=== PATIENT | female | born 1985 | race Caucasian/White ===

== ENCOUNTER 2016-07-10 08:50 | Emergency (ER) | payer OTHER ==
[~2016-07-10] VITALS: Ht 144.7 cm; Wt 40.8 kg
[~2016-07-10 08:50] MED LIST: CYCLOBENZAPRINE10 MG PO; HYDROCODONE BIT1 T11 PO; OMEPRAZOLE40 MG PO; ONDANSETRON4 MG PO; TRAMADOL HCL50 MG PO; ZOFRAN ODT4 MG SL; ZOFRAN4 MG PO; Zofran4 MG PO; [UNRECOGNIZED DRUG - OTHER]
[2016-07-10 09:41] LABS: BASO % 0.3 % (0.0-1.0); EOS % 0.2 % (1.0-4.0); HEMATOCRIT 42.5 % (37.0-47.0); HEMOGLOBIN 14.6 g/dl (12.0-16.0); LYMPH # 2.3 10*3/uL (1.3-4.4); LYMPH % 24.8 % (27.0-41.0); MEAN CELL VOLUME 89.1 fl (81.0-99.0); MEAN CORPUSCULAR HGB 30.6 pg (27.0-31.0); MEAN CORPUSCULAR HGB CONC 34.4 g/dl (33.0-37.0); MEAN PLATELET VOLUME 9.6 fl (9.6-12.3); MONO # 0.7 10*3/uL (0.1-1.0); MONO % 7.9 % (3.0-9.0); NEUT # 6.3 10*3/uL (2.3-7.9); NEUT % 66.4 % (47.0-73.0); PLATELET COUNT AUTOMATED 312 10*3/uL (130-400); RED BLOOD COUNT 4.77 10*6/uL (4.10-5.10); RED CELL DISTRI WIDTH 13.7 % (0-14.5); WHITE BLOOD COUNT 9.4 10*3/uL (4.8-10.8)
[2016-07-10 09:55] LABS: ALBUMIN 4.1 gm/dl (3.1-4.5); ALKALINE PHOSPHATASE 47 U/L (45-117); BUN 7 mg/dl (7-24); CARBON DIOXIDE 26 mmol/L (21-32); CHLORIDE 100 mmol/L (98-107); EST GLOM FILT AFRICAN AMERICAN > 60 ml/min; GLUCOSE 111 mg/dL (65-99); POTASSIUM 3.2 mmol/L (3.5-5.1); SGOT/AST 44 IU/L (3-35); SGPT/ALT 48 U/L (12-78); SODIUM 138 mmol/L (136-145); TOTAL PROTEIN 7.6 gm/dL (6.4-8.2); TROPONIN I < 0.015 ng/ml (<0.045)
[2016-07-10 10:02] LABS: BILIRUBIN 1+ (NEGATIVE); BLOOD 3+ (NEGATIVE); CLARITY CLOUDY (CLEAR); COLOR YELLOW (YELLOW); GLUCOSE NEGATIVE (NEGATIVE); KETONE 1+ (NEGATIVE); LEUKO ESTERASE 1+ (NEGATIVE); NITRITE NEGATIVE (NEGATIVE); PROTEIN TRACE (NEGATIVE); SPECIFIC GRAVITY 1.015 (1.005-1.030)
[2016-07-10 10:15] LABS: BACTERIA 2+; EPITHELIAL CELLS 21-30; URINE REFLEX COMMENT YES (NO)
[2016-07-10] MEDS ORDERED: BACTRIM DS 8001 TAB PO (10:20)
[2016-07-10] MEDS ORDERED: ZOFRAN ODT4 MG SL (10:20)
[2016-07-10] MEDS ORDERED: BACTRIM DS 8001 TA1 PO (11:00)
== END 2016-07-10 10:59 | disposition home or self-care (01) ==
LOC: ED 08:50
PROVIDERS: Registered Nurse
DX: N30.00 Acute cystitis without hematuria (principal); K52.9 Noninfective gastroenteritis and colitis, unspecified; F17.200 Nicotine dependence, unspecified, uncomplicated

== ENCOUNTER 2016-08-07 08:34 | Emergency (ER) | payer OTHER ==
[~2016-08-07] VITALS: Ht 144.7 cm; Wt 39.5 kg
[~2016-08-07 08:34] MED LIST changes: +BACTRIM DS 8001 TA1 PO; +BACTRIM DS 8001 TAB PO
[2016-08-07] MEDS ORDERED: BUSPAR5 MG PO (08:46)
[2016-08-07 09:33] LABS: BASO % 0.2 % (0.0-1.0); HEMATOCRIT 42.8 % (37.0-47.0); HEMOGLOBIN 15.1 g/dl (12.0-16.0); LYMPH % 19.3 % (27.0-41.0); MEAN CELL VOLUME 87.7 fl (81.0-99.0); MEAN CORPUSCULAR HGB 30.9 pg (27.0-31.0); MEAN CORPUSCULAR HGB CONC 35.3 g/dl (33.0-37.0); MEAN PLATELET VOLUME 10.1 fl (9.6-12.3); MONO # 1.1 10*3/uL (0.1-1.0); MONO % 10.8 % (3.0-9.0); NEUT % 69.4 % (47.0-73.0); PLATELET COUNT AUTOMATED 306 10*3/uL (130-400); RED BLOOD COUNT 4.88 10*6/uL (4.10-5.10); RED CELL DISTRI WIDTH 12.8 % (0-14.5); WHITE BLOOD COUNT 10.1 10*3/uL (4.8-10.8)
[2016-08-07 09:48] LABS: ALBUMIN 4.3 gm/dl (3.1-4.5); ALKALINE PHOSPHATASE 43 U/L (45-117); BILIRUBIN, TOTAL 1.2 mg/dl (0.2-1.0); BUN 7 mg/dl (7-24); CARBON DIOXIDE 32 mmol/L (21-32); CHLORIDE 93 mmol/L (98-107); EST GLOM FILT AFRICAN AMERICAN > 60 ml/min; GLUCOSE 97 mg/dL (65-99); POTASSIUM 2.9 mmol/L (3.5-5.1); SGOT/AST 80 IU/L (3-35); SGPT/ALT 92 U/L (12-78); SODIUM 137 mmol/L (136-145); TOTAL PROTEIN 7.1 gm/dL (6.4-8.2)
[2016-08-07 10:35] LABS: BILIRUBIN 1+ (NEGATIVE); BLOOD 2+ (NEGATIVE); CLARITY CLOUDY (CLEAR); COLOR YELLOW (YELLOW); GLUCOSE NEGATIVE (NEGATIVE); KETONE 3+ (NEGATIVE); LEUKO ESTERASE TRACE (NEGATIVE); NITRITE NEGATIVE (NEGATIVE); PROTEIN 1+ (NEGATIVE)
[2016-08-07 10:44] LABS: URINE REFLEX COMMENT YES (NO)
[2016-08-07 10:45] LABS: BACTERIA 2+; RBC 16-20 rbc/hpf (0-2)
[2016-08-07] MEDS ORDERED: REGLAN10 M1 PO (11:32)
== END 2016-08-07 11:36 | disposition home or self-care (01) ==
LOC: ED 08:34
PROVIDERS: Emergency Medicine
DX: R11.2 Nausea with vomiting, unspecified (principal); R19.7 Diarrhea, unspecified; F17.200 Nicotine dependence, unspecified, uncomplicated

== ENCOUNTER 2017-03-04 14:03 | Emergency (ER) | payer SELFPAY ==
[~2017-03-04] VITALS: Ht 144.7 cm; Wt 49.9 kg
[~2017-03-04 14:03] MED LIST changes: +BUSPAR5 MG PO; +REGLAN10 M1 PO
[2017-03-04 15:03] LABS: BILIRUBIN 1+ (NEGATIVE); BLOOD 3+ (NEGATIVE); CLARITY SL CLOUDY (CLEAR); COLOR YELLOW (YELLOW); GLUCOSE NEGATIVE (NEGATIVE); KETONE 2+ (NEGATIVE); LEUKO ESTERASE NEGATIVE (NEGATIVE); NITRITE NEGATIVE (NEGATIVE); SPECIFIC GRAVITY >= 1.030 (1.005-1.030)
[2017-03-04 15:10] LABS: BACTERIA 1+; EPITHELIAL CELLS 16-20; RBC 16-20 rbc/hpf (0-2)
[2017-03-04] MEDS ORDERED: ZOFRAN ODT4 MG SL (15:59)
== END 2017-03-04 16:12 | disposition home or self-care (01) ==
LOC: ED 14:03
PROVIDERS: Physician Assistant
DX: R11.2 Nausea with vomiting, unspecified (principal); R42 Dizziness and giddiness; R05 Cough; R09.81 Nasal congestion; R10.9 Unspecified abdominal pain; F17.200 Nicotine dependence, unspecified, uncomplicated; Z90.49 Acquired absence of other specified parts of digestive tract

== ENCOUNTER 2017-04-19 11:29 | Emergency (ER) | payer SELFPAY ==
[~2017-04-19] VITALS: Ht 144.7 cm; Wt 49.9 kg
[2017-04-19 11:48] LABS: BILIRUBIN 2+ (NEGATIVE); BLOOD 3+ (NEGATIVE); CLARITY CLOUDY (CLEAR); COLOR YELLOW (YELLOW); GLUCOSE NEGATIVE (NEGATIVE); KETONE 3+ (NEGATIVE); LEUKO ESTERASE NEGATIVE (NEGATIVE); NITRITE NEGATIVE (NEGATIVE); PH 6.5 (5.0-9.0)
[2017-04-19 12:02] LABS: EPITHELIAL CELLS 31-40; RBC 21-30 rbc/hpf (0-2)
[2017-04-19 12:03] LABS: BACTERIA TRACE
[2017-04-19 12:05] LABS: BASO % 0.2 % (0.0-1.0); EOS % 0.1 % (1.0-4.0); HEMATOCRIT 42.5 % (37.0-47.0); HEMOGLOBIN 14.5 g/dl (12.0-16.0); LYMPH # 1.4 10*3/uL (1.3-4.4); LYMPH % 11.5 % (27.0-41.0); MEAN CELL VOLUME 89.5 fl (81.0-99.0); MEAN CORPUSCULAR HGB 30.5 pg (27.0-31.0); MEAN CORPUSCULAR HGB CONC 34.1 g/dl (33.0-37.0); MEAN PLATELET VOLUME 10.2 fl (9.6-12.3); MONO # 0.9 10*3/uL (0.1-1.0); MONO % 7.5 % (3.0-9.0); NEUT # 9.6 10*3/uL (2.3-7.9); NEUT % 80.3 % (47.0-73.0); PLATELET COUNT AUTOMATED 310 10*3/uL (130-400); RED BLOOD COUNT 4.75 10*6/uL (4.10-5.10); RED CELL DISTRI WIDTH 14.5 % (0-14.5)
[2017-04-19 12:20] LABS: ALBUMIN 4.7 gm/dl (3.1-4.5); ALKALINE PHOSPHATASE 46 U/L (45-117); BUN 14 mg/dl (7-24); CHLORIDE 100 mmol/L (98-107); CREATININE 0.72 mg/dL (0.55-1.02); POTASSIUM 3.5 mmol/L (3.5-5.1); SGOT/AST 19 IU/L (3-35); SGPT/ALT 43 U/L (12-78); SODIUM 139 mmol/L (136-145); TOTAL PROTEIN 8.3 gm/dL (6.4-8.2)
[2017-04-19] MEDS ORDERED: ZOFRAN ODT4 MG SL (13:24)
== END 2017-04-19 12:23 | disposition home or self-care (01) ==
LOC: ED 11:29
PROVIDERS: Registered Nurse
DX: K52.9 Noninfective gastroenteritis and colitis, unspecified (principal); F17.200 Nicotine dependence, unspecified, uncomplicated; F10.10 Alcohol abuse, uncomplicated; Z79.899 Other long term (current) drug therapy